=== PATIENT | female | born 1955 | race Caucasian/White ===

== ENCOUNTER 2022-06-13 16:51 | Inpatient (IN) | payer OTHER, MEDICAID ==
[2022-06-13] MEDS ORDERED: Morphine 4 MG/ML VIAL ONE (17:09)
[2022-06-13] MEDS ORDERED: Ondansetron PF 4 MG/2 ML Vial ONE (17:10)
[2022-06-13 17:54] LABS: #Monocytes 0.2 10x3/uL (0.0-1.1); #Neutrophils 3.1 10x3/uL (1.5-8.4); %Basophils 0.3 % (0.0-2.0); %Eosinophils 0.8 % (0.0-6.0); %Lymphocytes 13.6 % (18.0-47.0); Hemoglobin 12.6 g/dL (12.0-15.5); Mean Corpuscular HGB CONC 32.5 g/dL (32.0-36.0); Mean Corpuscular Hemoglobin 28.3 pg (27.0-33.0); Mean Platelet Volume 10.3 fl (7.4-10.4); Platelet Count 174 10x3/uL (150-450); RBC Distribution Width 16.6 % (11.5-14.5); Red Blood Cell (RBC) Count 4.46 10x6/uL (3.90-5.03)
[2022-06-13 17:58] LABS: ALT (SGPT) 68 U/L (8-55); AST (SGOT) 107 U/L (5-34); Albumin 3.5 g/dL (3.4-4.8); Alkaline Phosphatase 136 U/L (40-110); Anion Gap 13 mmol/L (10-20); BUN (Urea Nitrogen) 8 mg/dL (9.8-20.1); Bilirubin, Total 0.6 mg/dL (0.2-1.2); Calc. Creatinine Clearance 0 mL/min (70-130); Calcium 9.3 mg/dL (7.8-10.44); Carbon Dioxide 28 mmol/L (23-31); Chloride 99 mmol/L (98-107); Estimated GFR 94; Globulin 3.5 g/dL (2.4-3.5); Glucose 220 mg/dL (80-115); Potassium 2.9 mmol/L (3.5-5.1); Sodium 137 mmol/L (136-145)
[2022-06-13 18:01] LABS: Bilirubin 3+ (Negative); Blood, Urine 25 (Negative); Glucose, Urine (Dipstick) Normal (Negative); Ketone, Urine 15 mg/dL (Negative); Leukocyte 500 (Negative); Nitrite Positive (Negative); Protein, Urine (Dipstick) 30 mg/dl (Neg-Trace)
[2022-06-13 18:02] LABS: Clarity Hazy (Clear)
[2022-06-13 18:09] LABS: Calcium Oxalate Crystals 1+ HPF (None Seen); Mucous/LPF 1+ LPF (<2+); RBC/HPF 0-3 HPF (0-3); Squamous Epithelial 0-3 HPF (0-3); WBC/HPF 21-50 HPF (0-3)
[2022-06-13] MEDS ORDERED: Potassium Chloride 20 MEQ TAB ONE (18:39)
[2022-06-13] MEDS ORDERED: cefTRIAXone\\ROCEPHIN 2 GM VIAL ONE (18:39)
[2022-06-13] MEDS ORDERED: Vancomycin 1 GM VIAL ONE ×2 (19:25→19:30)
[2022-06-13] MEDS ORDERED: Ondansetron PF 4 MG/2 ML Vial IVP PRN (19:58)
[2022-06-13] MEDS ORDERED: Acetaminophen 325 MG TAB PO PRN (19:58)
[2022-06-13] MEDS ORDERED: Ondansetron ODT 4 MG TAB PO PRN (19:58)
[2022-06-13] MEDS ORDERED: Dextrose 50% Abboject 50 ML SYRINGE SLOW IVP PRN (20:10)
[2022-06-13] MEDS ORDERED: Dextrose 5% in Water 1,000 ML IV PRN (20:10)
[2022-06-13 20:23] LABS: Magnesium 1.6 mg/dL (1.6-2.6)
[2022-06-13] MEDS ORDERED: Pantoprazole 40 MG VIAL IVP SCH (20:30)
[2022-06-13] MEDS ORDERED: Potassium Chloride 20 MEQ TAB PO SCH (20:30)
[2022-06-13] MEDS ORDERED: Piperacillin/Tazobactam 3.375 GM in Sodium Chloride 0.9% 100 ML IVPB SCH (22:30)
[2022-06-13] MEDS: Sodium Chloride 0.9% 1,000 ML IV SCH (22:55)
[2022-06-13] MEDS: HYDROcodone/Acetaminophen 5/325 mg Tablet PO PRN (22:56)
[2022-06-13] MEDS: Lantus 1000 UNITS/10 ML VIAL SC SCH (22:58)
[2022-06-14 02:38] VITALS: BMI 39.1
[2022-06-14] MEDS: HYDROcodone/Acetaminophen 5/325 mg Tablet PO PRN ×3 (03:58→20:52)
[2022-06-14] MEDS: Piperacillin/Tazobactam 3.375 GM in Sodium Chloride 0.9% 100 ML IVPB SCH ×3 (05:00→21:39)
[2022-06-14] MEDS: HumaLOG 300 UNITS/3 ML VIAL SC PRN ×2 (05:04→20:54)
[2022-06-14 05:19] LABS: #Monocytes 0.2 10x3/uL (0.0-1.1); #Neutrophils 3.5 10x3/uL (1.5-8.4); %Basophils 0.5 % (0.0-2.0); %Eosinophils 0.7 % (0.0-6.0); %Lymphocytes 9.3 % (18.0-47.0); %Neutrophils 84.3 % (40.0-75.0); Hemoglobin 11.7 g/dL (12.0-15.5); Mean Corpuscular HGB CONC 32.4 g/dL (32.0-36.0); Mean Corpuscular Hemoglobin 28.6 pg (27.0-33.0); Mean Corpuscular Volume 88.3 fl (81.6-98.3); Mean Platelet Volume 10.1 fl (7.4-10.4); Platelet Count 126 10x3/uL (150-450); RBC Distribution Width 16.5 % (11.5-14.5); Red Blood Cell (RBC) Count 4.09 10x6/uL (3.90-5.03); White Blood Cell (WBC) Count 4.2 10x3/uL (3.5-10.5)
[2022-06-14 05:34] LABS: Anion Gap 10 mmol/L (10-20); BUN (Urea Nitrogen) 6 mg/dL (9.8-20.1); Calc. Creatinine Clearance 133 mL/min (70-130); Calcium 8.8 mg/dL (7.8-10.44); Carbon Dioxide 27 mmol/L (23-31); Chloride 103 mmol/L (98-107); Estimated GFR 97; Glucose 174 mg/dL (80-115); Potassium 3.4 mmol/L (3.5-5.1); Sodium 137 mmol/L (136-145)
[2022-06-14] MEDS: Mometasone/Formoterol 200/5 60 PUFF INH SCH ×2 (07:50→19:45)
[2022-06-14] MEDS: Sodium Chloride 0.9% 1,000 ML IV SCH ×2 (10:30→22:26)
[2022-06-14] MEDS: Lidocaine 5% Patch TD SCH (12:40)
[2022-06-14] MEDS: Ezetimibe 10 MG TAB PO SCH (12:41)
[2022-06-14] MEDS: FLUoxetine HCl 20 MG CAP PO SCH (12:41)
[2022-06-14] MEDS: Furosemide 40 MG TAB PO SCH (12:41)
[2022-06-14] MEDS: Cholecalciferol 1,000 UNITS (25 MCG) TAB PO SCH (12:41)
[2022-06-14] MEDS: Tamoxifen 10 MG TAB PO SCH (13:00)
[2022-06-14] MEDS: Magnesium Oxide 400 MG TAB PO SCH ×2 (13:00→20:52)
[2022-06-14] MEDS: Polyethylene Glycol 3350 17 GM Packet PO SCH (13:00)
[2022-06-14] MEDS ORDERED: Potassium Chloride 20 MEQ TAB PO SCH (14:15)
[2022-06-14] MEDS: Lantus 1000 UNITS/10 ML VIAL SC SCH (20:53)
[2022-06-14] MEDS: LIDOCAINE Patch Removal TOP SCH (21:22)
[2022-06-15] MEDS: Piperacillin/Tazobactam 3.375 GM in Sodium Chloride 0.9% 100 ML IVPB SCH ×3 (06:09→21:27)
[2022-06-15] MEDS: HumaLOG 300 UNITS/3 ML VIAL SC PRN ×3 (06:20→21:21)
[2022-06-15] MEDS: Mometasone/Formoterol 200/5 60 PUFF INH SCH ×2 (07:24→19:15)
[2022-06-15] MEDS: Ezetimibe 10 MG TAB PO SCH (10:58)
[2022-06-15] MEDS: Magnesium Oxide 400 MG TAB PO SCH ×2 (10:58→21:19)
[2022-06-15] MEDS: Polyethylene Glycol 3350 17 GM Packet PO SCH (10:58)
[2022-06-15] MEDS: Furosemide 40 MG TAB PO SCH (10:58)
[2022-06-15] MEDS: Lidocaine 5% Patch TD SCH (10:59)
[2022-06-15] MEDS: FLUoxetine HCl 20 MG CAP PO SCH (10:59)
[2022-06-15] MEDS: Tamoxifen 10 MG TAB PO SCH (10:59)
[2022-06-15] MEDS: Cholecalciferol 1,000 UNITS (25 MCG) TAB PO SCH (10:59)
[2022-06-15 11:00] LABS: Anion Gap 11 mmol/L (10-20); BUN (Urea Nitrogen) 4 mg/dL (9.8-20.1); Calc. Creatinine Clearance 138 mL/min (70-130); Calcium 8.8 mg/dL (7.8-10.44); Carbon Dioxide 25 mmol/L (23-31); Chloride 104 mmol/L (98-107); Estimated GFR 98; Glucose 228 mg/dL (80-115); Potassium 3.8 mmol/L (3.5-5.1); Sodium 136 mmol/L (136-145)
[2022-06-15] MEDS: Sodium Chloride 0.9% 1,000 ML IV SCH (13:49)
[2022-06-15] MEDS: Lantus 1000 UNITS/10 ML VIAL SC SCH (21:21)
[2022-06-15] MEDS: LIDOCAINE Patch Removal TOP SCH (21:27)
[2022-06-16] MEDS: Sodium Chloride 0.9% 1,000 ML IV SCH ×2 (04:14→22:20)
[2022-06-16] MEDS: Piperacillin/Tazobactam 3.375 GM in Sodium Chloride 0.9% 100 ML IVPB SCH ×3 (05:58→21:05)
[2022-06-16] MEDS: Mometasone/Formoterol 200/5 60 PUFF INH SCH ×2 (07:10→20:55)
[2022-06-16] MEDS: Lidocaine 5% Patch TD SCH (12:09)
[2022-06-16] MEDS: Tamoxifen 10 MG TAB PO SCH (12:11)
[2022-06-16] MEDS: Furosemide 40 MG TAB PO SCH (12:12)
[2022-06-16] MEDS: Cholecalciferol 1,000 UNITS (25 MCG) TAB PO SCH (12:12)
[2022-06-16] MEDS: Ezetimibe 10 MG TAB PO SCH (12:12)
[2022-06-16] MEDS: Magnesium Oxide 400 MG TAB PO SCH ×2 (12:13→21:06)
[2022-06-16] MEDS: FLUoxetine HCl 20 MG CAP PO SCH (12:13)
[2022-06-16] MEDS: HYDROcodone/Acetaminophen 5/325 mg Tablet PO PRN ×2 (12:13→21:05)
[2022-06-16] MEDS: Polyethylene Glycol 3350 17 GM Packet PO SCH (12:25)
[2022-06-16] MEDS: HumaLOG 300 UNITS/3 ML VIAL SC PRN ×3 (14:19→21:07)
[2022-06-16] MEDS: Lantus 1000 UNITS/10 ML VIAL SC SCH (21:06)
[2022-06-16] MEDS: LIDOCAINE Patch Removal TOP SCH (22:19)
[2022-06-17] MEDS: Sodium Chloride 0.9% 1,000 ML IV SCH (05:41)
[2022-06-17] MEDS: Piperacillin/Tazobactam 3.375 GM in Sodium Chloride 0.9% 100 ML IVPB SCH (05:41)
[2022-06-17] MEDS: HumaLOG 300 UNITS/3 ML VIAL SC PRN ×2 (05:50→12:51)
[2022-06-17] MEDS: Mometasone/Formoterol 200/5 60 PUFF INH SCH (08:30)
[2022-06-17] MEDS: Cholecalciferol 1,000 UNITS (25 MCG) TAB PO SCH (10:29)
[2022-06-17] MEDS: FLUoxetine HCl 20 MG CAP PO SCH (10:30)
[2022-06-17] MEDS: Furosemide 40 MG TAB PO SCH (10:31)
[2022-06-17] MEDS: Ezetimibe 10 MG TAB PO SCH (10:31)
[2022-06-17] MEDS: Tamoxifen 10 MG TAB PO SCH (10:32)
[2022-06-17] MEDS: Magnesium Oxide 400 MG TAB PO SCH (10:32)
[2022-06-17] MEDS: Lidocaine 5% Patch TD SCH (10:34)
[2022-06-17] MEDS: Polyethylene Glycol 3350 17 GM Packet PO SCH (13:34)
[2022-06-17 23:08] VITALS: BP 125/60; TEMP 99.2
== END 2022-06-17 17:40 | DRG 690 ==
LOC: CSHERS 16:51 → CSHTELE 22:14 → INTOOBSV 22:14 → OBSVTOIN 06-14 14:36
PROVIDERS: ADMIT Family Medicine; ATTEND Internal Medicine
DX: N39.0 Urinary tract infection, site not specified (principal); I50.32 Chronic diastolic (congestive) heart failure; N20.0 Calculus of kidney; E11.9 Type 2 diabetes mellitus without complications; J44.9 Chronic obstructive pulmonary disease, unspecified; K21.9 Gastro-esophageal reflux disease without esophagitis; F32.A Depression, unspecified; E78.5 Hyperlipidemia, unspecified; F43.10 Post-traumatic stress disorder, unspecified; K75.4 Autoimmune hepatitis; E87.6 Hypokalemia; B19.20 Unspecified viral hepatitis C without hepatic coma; Z85.3 Personal history of malignant neoplasm of breast; Z79.899 Other long term (current) drug therapy; Z88.5 Allergy status to narcotic agent; Z91.040 Latex allergy status; Z91.048 Other nonmedicinal substance allergy status; Z79.51 Long term (current) use of inhaled steroids; Z98.890 Other specified postprocedural states; Z90.49 Acquired absence of other specified parts of digestive tract; Z90.79 Acquired absence of other genital organ(s); Z90.722 Acquired absence of ovaries, bilateral; Z87.11 Personal history of peptic ulcer disease; Z87.891 Personal history of nicotine dependence; Z79.4 Long term (current) use of insulin; Z86.19 Personal history of other infectious and parasitic diseases; Z20.822 Contact with and (suspected) exposure to COVID-19
CPT/HCPCS: 36416; 51701; 74176; 80048; 80053; 81003; 81015; 83605; 83735; 85025; 87086; 93306; 94664; 94760; 96365; 96366; 96372; 96375; 96376; C9113; G0378; J0696; J1650; J1815; J2270; J2405; J2543; J3370; J3490; J7050; Q0162; U0003; U0005